=== PATIENT | female | born 1995 | race Caucasian/White ===

== ENCOUNTER 2018-02-07 18:53 | Inpatient (IN) | payer MEDICAID, OTHER ==
[~2018-02-07] VITALS: Ht 165.1 cm; Wt 115.2 kg
[2018-02-07] MEDS ORDERED: RINGERS SOLUTION,LACTATED 1,000 ML IV SCH (19:25)
[2018-02-07] MEDS ORDERED: RINGERS SOLUTION,LACTATED 1,000 ML IV PRN (19:25)
[2018-02-07] MEDS ORDERED: OXYTOCIN 30 UNITS/LACT RINGERS 500 ML IV ONE (19:25)
[2018-02-07] MEDS ORDERED: METOCLOPRAMIDE HCL 5 MG/ML 2 ML VIAL IVP PRN (19:30)
[2018-02-07] MEDS ORDERED: CITRIC ACID/SODIUM CITRATE 30 ML SOLUTION UDCUP PO PRN (19:30)
[2018-02-07] MEDS ORDERED: FentaNYL CITRATE-PF 100 MCG/2 ML VIAL IVP PRN ×2 (19:30→23:30)
[2018-02-07] MEDS ORDERED: OXYGEN THERAPY IH SCH (20:00)
[2018-02-07 20:01] LABS: BASOPHILS % (AUTO) 0.3 % (0.0-2.0); EOSINOPHILS % (AUTO) 0.1 % (1.0-6.0); HEMATOCRIT 31.8 % (36-46); HEMOGLOBIN 10.7 g/dL (12.0-16.0); LYMPHOCYTES % (AUTO) 11.1 % (22.0-44.0); MEAN CORPUSCULAR HEMOGLOBIN 29.5 pg (26.0-34.0); MEAN CORPUSCULAR HGB CONC 33.5 G/dL (31.0-37.0); MEAN CORPUSCULAR VOLUME 88 fL (80-100); MONOCYTES # (AUTO) 0.6 K/uL (0.1-1.0); NEUTROPHILS # (AUTO) 7.2 K/uL (1.8-7.7); NEUTROPHILS % (AUTO) 81.5 % (40.0-70.0); PLATELET COUNT (AUTO)-OB 256 K/uL (150-450); RED BLOOD CELL COUNT(AUTO) 3.61 MIL/uL (4.00-5.20); RED CELL DISTRIBUTION WIDTH 14.7 % (11.5-14.5)
[2018-02-07] MEDS ORDERED: OXYTOCIN 30 UNITS/LACT RINGERS 500 ML IV PRN (21:02)
[2018-02-07] MEDS ORDERED: ROPIVACAINE HCL/PF 0.2% 100 ML ED ONE (21:05)
[2018-02-07 21:31] VITALS: BP 139/72
[2018-02-07] MEDS ORDERED: ROPIVACAINE HCL/PF 0.2% 100 ML ED PRN (21:45)
[2018-02-07] MEDS ORDERED: ONDANSETRON HCL 4 MG/2 ML VIAL IVP PRN ×2 (21:45→23:30)
[2018-02-07] MEDS ORDERED: DiphenhydrAMINE HCL 50 MG/ML VIAL IVP PRN ×2 (21:45→23:30)
[2018-02-07] MEDS ORDERED: ACETAMINOPHEN 1000 MG/ISO-OSM 100 ML IV ONE (22:20)
[2018-02-07] MEDS ORDERED: OxyCODONE HCL/ACETAMINOPHEN 10-325 MG TABLET PO PRN (23:30)
[2018-02-07] MEDS ORDERED: NALOXONE HCL 0.4 MG/ML VIAL IVP PRN (23:30)
[2018-02-07] MEDS ORDERED: HYDROmorphone 2 MG/ML SYRINGE IVP PRN ×2 (23:30)
[2018-02-07] MEDS ORDERED: MEPERIDINE-PF 25 MG/ML VIAL IVP PRN (23:30)
[2018-02-08] MEDS ORDERED: ACETAMINOPHEN/CODEINE 300-30 MG TABLET PO PRN ×2
[2018-02-08] MEDS ORDERED: LANOLIN 7 GM OINTMENT TP PRN
[2018-02-08] MEDS ORDERED: FentaNYL CITRATE-PF 100 MCG/2 ML VIAL ONE (00:24)
[2018-02-08] MEDS: FentaNYL CITRATE-PF 100 MCG/2 ML VIAL IVP PRN ×2 (00:26→01:31)
[2018-02-08] MEDS: DEXTROSE 5%-0.45% SODIUM CHL 1,000 ML IV SCH ×4 (04:24→18:31)
[2018-02-08] MEDS: ACETAMINOPHEN 500 MG TABLET PO SCH ×2 (04:30→11:37)
[2018-02-08] MEDS ORDERED: ACETAMINOPHEN 1000 MG/ISO-OSM 100 ML IV ONE (05:00)
[2018-02-08] MEDS: MAGNESIUM HYDROXIDE SUSPENSION 30 ML UDCUP PO SCH ×2 (09:00→21:00)
[2018-02-08] MEDS ORDERED: DEXTROSE 5%-0.45% SODIUM CHL 1,000 ML IV ONE (09:24)
[2018-02-08] MEDS: IBUPROFEN 800 MG TABLET PO SCH ×2 (17:35→23:28)
[2018-02-09] MEDS ORDERED: EPHEDrine SULFATE 50 MG/ML VIAL IM ONE (05:29)
[2018-02-09] MEDS ORDERED: OXYTOCIN 10 UNITS/ML VIAL IM ONE (05:29)
[2018-02-09] MEDS ORDERED: MORPHINE SULFATE/PF 0.5 MG/ML 10 ML AMP IVP ONE (05:29)
[2018-02-09] MEDS ORDERED: MIDAZOLAM HCL 2 MG/2 ML VIAL IVP ONE (05:29)
[2018-02-09] MEDS ORDERED: FentaNYL CITRATE-PF 100 MCG/2 ML VIAL IVP ONE (05:29)
[2018-02-09] MEDS ORDERED: PROPOFOL 1% 20 ML VIAL IVP ONE (05:29)
[2018-02-09] MEDS ORDERED: KETAMINE HCL 50 MG/ML 10 ML VIAL IVP ONE (05:29)
[2018-02-09] MEDS ORDERED: LIDOCAINE/PF 2% 5 ML VIAL IM ONE (05:29)
[2018-02-09] MEDS ORDERED: ONDANSETRON HCL 4 MG/2 ML VIAL IVP ONE (05:29)
[2018-02-09] MEDS ORDERED: EPINEPHrine 1:1,000 [1 MG/ML] AMP IM ONE (05:29)
[2018-02-09] MEDS: IBUPROFEN 800 MG TABLET PO SCH ×3 (06:18→21:31)
[2018-02-09] MEDS ORDERED: SENNA/DOCUSATE SODIUM 8.6-50 MG TABLET PO ONE (10:30)
[2018-02-09] MEDS: ACETAMINOPHEN 500 MG TABLET PO SCH ×2 (16:38→23:03)
[2018-02-09] MEDS: MAGNESIUM HYDROXIDE SUSPENSION 30 ML UDCUP PO SCH (21:00)
[2018-02-10] MEDS: MAGNESIUM HYDROXIDE SUSPENSION 30 ML UDCUP PO SCH (09:00)
[2018-02-10] MEDS: IBUPROFEN 800 MG TABLET PO SCH ×3 (09:26→21:00)
[2018-02-10 18:13] LABS: RUBELLA SCREEN (IGG) IMMUNE (IMMUNE)
[2018-02-11] MEDS: IBUPROFEN 800 MG TABLET PO SCH ×2 (03:35→09:12)
[2018-02-11] MEDS ORDERED: IBUP-2071 PO (10:14)
== END 2018-02-11 10:35 | disposition home or self-care (01) | DRG 540 ==
LOC: 4S 19:00 → OBSVTOIN 19:00 → 4S 02-08 02:23
PROVIDERS: ADMIT Obstetrics & Gynecology; ATTEND Obstetrics & Gynecology
PROC: 10D00Z1 Extraction of Products of Conception, Low, Open Approach (ICD-10-PCS; principal; 2018-02-07)
DX: O32.1XX0 Maternal care for breech presentation, not applicable or unspecified (principal); O77.0 Labor and delivery complicated by meconium in amniotic fluid; Z3A.38 38 weeks gestation of pregnancy; Z37.1 Single stillbirth; Z28.21 Immunization not carried out because of patient refusal
CPT/HCPCS: 76811; 80307; 86592; 86762; 86850; 86900; 86901; 87081; 87340; 88307; J0131; J0171; J0690; J2250; J2274; J2405; J2590; J2704; J2795; J3010; J3490; J7120